=== PATIENT | male | born 2000 | race Caucasian/White ===

== ENCOUNTER 2018-10-01 20:14 | Emergency (ER) | payer SELFPAY ==
[~2018-10-01] VITALS: Ht 167.6 cm; Wt 53.0 kg
[2018-10-01] MEDS ORDERED: DEXAMETHASONE 10 MG/ML VIAL PO ONE (22:45)
[2018-10-01] MEDS ORDERED: IBUPROFEN 600MG TABLET PO ONE (22:45)
[2018-10-01 23:27] VITALS: BP 122/70
== END 2018-10-01 23:29 | disposition home or self-care (01) ==
LOC: ER 20:14
DX: B34.9 Viral infection, unspecified (principal); F12.10 Cannabis abuse, uncomplicated
CPT/HCPCS: 99283; J1100